=== PATIENT | male | born 1975 | race Hispanic/Latino ===

== ENCOUNTER 2016-11-21 02:05 | Emergency (ER) | payer SELFPAY ==
[~2016-11-21] VITALS: Ht 177.8 cm; Wt 85.2 kg
[2016-11-21] MEDS ORDERED: PERCOCET 5/31 TABLET PO (02:43)
[2016-11-21] MEDS ORDERED: VALIUM5 MG PO (02:43)
[2016-11-21 03:12] VITALS: BP 163/103
[2016-11-22] MEDS ORDERED: DILAUDID2 MG PO (04:56)
[2016-11-22] MEDS ORDERED: LIDOCAINE700 MG TD (04:57)
== END 2016-11-21 03:12 | disposition home or self-care (01) ==
LOC: EME 02:05 → EDBD 02:05 → EME 03:12
DX: M54.9 Dorsalgia, unspecified (principal); W13.8XXA Fall from, out of or through other building or structure, initial encounter
CPT/HCPCS: 99281; 99283

== ENCOUNTER 2016-11-21 23:13 | Emergency (ER) | payer SELFPAY ==
[~2016-11-21] VITALS: Ht 177.8 cm; Wt 88.0 kg
[~2016-11-21 23:13] MED LIST: PERCOCET 5/31 TABLET PO; VALIUM5 MG PO
[2016-11-22 02:31] LABS: BASOPHIL COUNT 0.1 K/uL (0-0.1); EOSINOPHIL (%) 10.3 % (0-5); EOSINOPHIL COUNT 1.1 K/uL (0-0.3); HEMATOCRIT 45.2 % (38.0-50.0); IMMATURE GRANULOCYTE (%) 0.8 % (0.0-0.7); IMMATURE GRANULOCYTE COUNT 0.1 K/uL; INSTRUMENT ABS NEUTROPHIL CT 4.6 K/uL; LYMPHOCYTE COUNT 3.9 K/uL (1.0-2.8); MCH 31.6 PG (29.0-34.0); MCHC 33.8 G/DL (30.0-36.0); MCV 93.4 FL (86-99); MEAN PLAT.VOLUME 10.2 uM^3 (9.0-12.4); MONOCYTE (%) 6.2 % (3-12); MONOCYTE COUNT 0.6 K/uL (0-0.8); NEUTROPHIL (%) 44.4 % (45-76); NEUTROPHIL COUNT 4.6 K/uL (1.8-6.4); PLATELET COUNT 300 K/uL (156-360); RBC DIS.WIDTH-CV 13.6 % (11.8-14.6); RBC DIS.WIDTH-SD 46.1 % (39-53); RED BLOOD COUNT 4.84 M/uL (4.00-5.50); WHITE BLOOD COUNT 10.3 K/uL (4.1-10.2)
[2016-11-22 02:45] LABS: CHLORIDE 105 mEq/L (99-109); POTASSIUM 4.2 mEq/L (3.7-5.4); SODIUM 138 mEq/L (136-147)
[2016-11-22 02:46] LABS: GLUCOSE 102 mg/dL (70-99)
[2016-11-22 02:48] LABS: ANION GAP 9 MEQ/L (2-14)
[2016-11-22 02:50] LABS: GFR ESTIMATE (CALCULATED) > 59 mL/min/
[2016-11-22 02:51] LABS: UREA NITROGEN (BUN) 12 mg/dL (9-23)
[2016-11-22 04:08] LABS: ADD MIUA? NO; BILIRUBIN NEGATIVE; BLOOD NEGATIVE; COLOR YELLOW ((YELLOW)); GLUCOSE (STRIP) NEGATIVE; KETONES NEGATIVE; LEUKOCYTES NEGATIVE; NITRITE NEGATIVE; PROTEIN (STRIP) NEGATIVE; SPECIFIC GRAVITY 1.013 (1.000-1.030); UCUL ADDED? NO; UROBILINOGEN 0.2 MG/DL (0.2-1.0)
[2016-11-22] MEDS ORDERED: DILAUDID2 MG PO (04:56)
[2016-11-22] MEDS ORDERED: LIDOCAINE700 MG TD (04:57)
[2016-11-22 05:45] VITALS: BP 123/86
== END 2016-11-22 05:45 | disposition home or self-care (01) ==
LOC: EME 23:13
PROVIDERS: Emergency Medicine
DX: M51.16 Intervertebral disc disorders with radiculopathy, lumbar region (principal); M51.17 Intervertebral disc disorders with radiculopathy, lumbosacral region; R29.6 Repeated falls; Z91.81 History of falling
CPT/HCPCS: 70150; 72148; 80048; 81003; 85025; 99281; 99285; J1100; J2270